=== PATIENT | female | born 1975 | race Two or more races ===

== ENCOUNTER 2025-09-30 15:24 | Inpatient (IN) | payer OTHER ==
[~2025-09-30] VITALS: Ht 160 cm; Wt 84.5 kg
[2025-09-30 16:28] LABS: Nucleated Red Blood Cells % 0.1 %
[2025-09-30 16:29] LABS: Hematocrit 42.0 % (36.0-46.0); Hemoglobin 14.5 g/dL (12.2-16.2); Mean Corpuscular Hemoglobin 26.8 pg (28.0-32.0); Mean Corpuscular Volume 77.6 fL (80.0-100.0)
--- NOTE | 2025-09-30 16:30 | ED.PDOC ---
History of Present Illness HPI Comments 50-year-old, Tajik-speaking female presents with friend for chief complaint of chest pain. Pressure endorses on sudden, unprovoked, atraumatic onset of pain, this morning. Pain originates in her substernal chest area that radiates directly to her back. She reports having associated nausea and vomiting. No reported recent per ailments, stressors, strenuous activities, travel, substance use, or any pertinent medical, surgical, social, or family history. Patient denies having any shortness of breath, arm pain, bloody or bilious vomitus, or further acute symptoms. 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 History Social History Smoker: Non-Smoker Alcohol: Denies ETOH Use Drugs: Denies Drug Use Lives In: Home All Other Systems: Reviewed and Negative (Comprehensive review of systems are negative unless otherwise stated in HPI) Physical Exam General Appearance: Moderate Distress HEENT: Normal ENT Inspection, Pharynx Normal, TMs Normal Neck: Full Range of Motion, Non-Tender, Normal, Normal Inspection Respiratory: Chest Non-Tender, Lungs Clear, No Accessory Muscle Use, No Respiratory Distress, Normal Breath Sounds Cardiovascular: No Edema, No JVD, No Murmur, No Gallop, Normal Peripheral Pulses, Regular Rate/Rhythm Breast Exam: Deferred Gastrointestinal: No Organomegaly, Non Tender, No Pulsatile Mass, Normal Bowel Sounds, Soft Genitalia: Deferred Pelvic: Deferred Rectal: Deferred Extremities: No calf tenderness, Normal capillary refill, Normal inspection, Normal range of motion, Non-tender, No pedal edema Musculoskeletal : Apperance: Normal Neurologic: Alert, 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 Was a procedure done?: No EKG EKG #1: Pulse Rate (adult): 56 [place]: Normal Cardiac Rhythm: NSR Block: None Hypertrophy: None ST: Normal EKG #2: Pulse Rate (adult): 54 [place]: Normal Cardiac Rhythm: NSR Block: None Hypertrophy: None ST: Normal Differential Dx Considerations may include: PR PE, ACS, CAD, URI, PNA, angina, anxiety, gastritis, gastroenteritis, among others X-Ray, Labs, Meds, VS Vital Signs Date Time Temp Pulse Resp B/P (MAP) Pulse Ox O2 Delivery O2 Flow Rate FiO2 09/30/25 16:43 09/30/25 16:30 56 09/30/25 15:37 56 09/30/25 15:26 97.0 62 18 179/116 100 97.0 Lab Test 09/30/25 16:17 Range/Units White Blood Count 5.1 4.4-10.8 10^3/uL Red Blood Count 5.42 H 4.0-5.20 10^6/uL Hemoglobin 14.5 12.2-16.2 g/dL Hematocrit 42.0 36.0-46.0 % Mean Corpuscular Volume 77.6 L 80.0-100.0 fL Mean Corpuscular Hemoglobin 26.8 L 28.0-32.0 pg Mean Corpuscular Hemoglobin Concent 34.6 32.0-36.0 g/dL Red Cell Distribution Width 14.9 H 11.8-14.3 % Platelet Count 127 L 140-450 10^3/uL Mean Platelet Volume 11.9 H 6.9-10.8 fL Neutrophils (%) (Auto) 71.3 37.0-80.0 % Lymphocytes (%) (Auto) 19.8 10.0-50.0 % Monocytes (%) (Auto) 6.6 0.0-12.0 % Eosinophils (%) (Auto) 1.2 0.0-7.0 % Basophils (%) (Auto) 1.1 0.0-2.0 % Neutrophils # (Auto) 3.6 1.6-8.6 10 ^3/uL Lymphocytes # (Auto) 1.0 0.4-5.4 10 ^3/uL Monocytes # (Auto) 0.3 0-1.3 10 ^3/uL Eosinophils # (Auto) 0.1 0-0.8 10 ^3/uL Basophils # (Auto) 0.1 0-0.2 10 ^3/uL Nucleated Red Blood Cells 0.1 % Platelet Estimate Pending Sodium Level 144 136-145 mmol/L Potassium Level 2.5 *L 3.5-5.1 mmol/L Chloride Level 103 98-107 mmol/L Carbon Dioxide Level 28 20-31 mmol/L Anion Gap 13 5-15 Blood Urea Nitrogen 7 L 9-23 mg/dL Creatinine 0.87 0.550-1.02 mg/dL Glomerular Filtration Rate Calc 81 >90 mL/min BUN/Creatinine Ratio 8.0 L 10.0-20.0 Serum Glucose 159 H 74-106 mg/dL Calcium Level 9.8 8.7-10.4 mg/dL Troponin I High Sensitivity Pending Patient alert. Complaining of chest pain. Vitals stable. Blood sugar elevated. Potassium is low. WBC within normal limits. Hemoglobin within normal limits. EKG reviewed does not show any acute changes. Explained to the patient. Continue monitoring. Time of 1ST Reevaluation: 16:20 Reevaluation 1ST: Unchanged Patient Education/Counseling: Diagnosis, Treatment Family Education/Counseling: No Family Present SEPSIS Sepsis Screen Date sepsis recognized/suspect: Sep 30, 2025 Time Sepsis recognized/suspect: 1526 Recent Procedure: No On Antibiotic Therapy: No Respiratory Rate >20: No Heart Rate >90: No Temp<36 C (96.8 F) or >38.3 C: No SBP <90 or MAP <65 mmHG: No New Acute Mental Status Change: No Is the patient on CPAP, BIPAP,: No Physician Orders Electrocardigram (09/30/25 15:51) Electrocardigram (09/30/25 16:51) Electrocardigram (09/30/25 18:51) Troponin-I Hs (09/30/25 16:08) Complete Blood Count (09/30/25 16:08) Urinalysis (09/30/25 16:08) Troponin-I Hs (09/30/25 17:08) Troponin-I Hs (09/30/25 19:08) Rbc Morphology (09/30/25 16:17) Vital Signs Date Time Temp Pulse Resp B/P (MAP) Pulse Ox O2 Delivery O2 Flow Rate FiO2 09/30/25 16:43 09/30/25 16:30 56 09/30/25 15:37 56 09/30/25 15:26 97.0 62 18 179/116 100 97.0 Laboratory Tests Test 09/30/25 16:17 White Blood Count 5.1 10^3/uL (4.4-10.8) Departure 1 Departure Time of Disposition: 16:51 Impression: Primary Impression: Chest pain of unknown etiology Additional Impressions: Hyperglycemia Hypokalemia Disposition: ADMITTED INPATIENT Admit to: Med Surg Condition: Guarded Critical Care Note Critical Care Time?: Yes (90 min-critical care time only) Stability Stability form required: No Heart Score Heart Score: Heart Score Response (Comments) Value History Moderate Suspicious 1 EKG Normal 0 Age 45-64 1 Risk Factors No known risk factors 0 Troponin Normal limit 0 Total 2 I personally scribed for BJ HER MD ([email or web address]) on 09/30/25 at 16:30. Electronically submitted by Zhen Adame ([email or web address]). I personally scribed for BJ HER MD ([email or web address]) on 09/30/25 at 16:43. Electronically submitted by Zhen Adame [email or web address]). BJ HER MD Sep 30, 2025 16:30
[2025-09-30 16:35] LABS: Chloride 103 mmol/L (98-107); Sodium 144 mmol/L (136-145)
[2025-09-30 16:36] LABS: Anion Gap 13 (5-15); Carbon Dioxide 28 mmol/L (20-31)
[2025-09-30 16:37] LABS: Calcium 9.8 mg/dL (8.7-10.4)
[2025-09-30 16:41] LABS: BUN/Creatinine Ratio 8.0 (10.0-20.0); Potassium 2.5 mmol/L (3.5-5.1)
[2025-09-30 16:42] LABS: Blood Urea Nitrogen 7 mg/dL (9-23); Glucose 159 mg/dL (74-106)
[2025-09-30 16:52] LABS: Giant Platelets Few
[2025-09-30] MEDS: POTASSIUM EFFERVESENT TAB 25 MEQ PO ONE (17:30)
[2025-09-30] MEDS: NITROGLYCERIN 0.4 MG SL TAB SL ONE (17:36)
[2025-09-30 19:17] LABS: Urine Protein, UAD Negative (Negative)
[2025-09-30 21:00] VITALS: BP 148/93; PULSE 67; RESP 18; TEMP 97.9; O2SAT 98
[2025-09-30] MEDS: ENOXAPARIN SOD 80 MG/0.8ML SYRINGE SC ONE (21:02)
[2025-09-30] MEDS ORDERED: ACETAMINOPHEN 325 MG TAB PO PRN (21:15)
[2025-09-30] MEDS ORDERED: MORPHINE SULFATE INJ 2 MG/ml SYRG IV PRN (21:15)
[2025-09-30] MEDS ORDERED: DOCUSATE SOD 100 MG CAP PO PRN (21:15)
[2025-09-30] MEDS ORDERED: ONDANSETRON HCL 4 MG/2 ML VIAL IV PRN (21:15)
[2025-09-30] MEDS ORDERED: NITROGLYCERIN 0.4 MG SL TAB SL PRN (21:15)
[2025-09-30] MEDS ORDERED: HYDROcodone-ACET 5/325MG TAB PO PRN (21:15)
--- NOTE | 2025-09-30 21:16 | DVHHP2 ---
History of Present Illness Reason for Visit: Chest pain of unknown etiology History of Present Illness The patient is a 50-year-old Swazi-speaking female who denies past medical history presented to [facility] ED with complaint of chest pain. Patient reports she has been experiencing substernal chest pain, getting, rating 8/10 numeric scale, associated nausea, vomiting, getting worse that prompted this visit. Patient was seen and evaluated in the ED, laboratory data shows WBC 5.1, platelets 127, sodium 144, potassium 2.5, BUN 7, creatinine 0.87, GFR 81, glucose 159, hemoglobin A1c 5.2, calcium 9.8, troponin 64, blood pressure 138/94, heart rate 66, temperature 98.4 F, O2 saturation 98% on room air. Please see medication orders section in the computer. On my assessment, patient denied chest pain at this moment, no headache, dizziness, diaphoresis, shortness a breath, no diarrhea, nausea, vomiting, fever, no chills. Patient was admitted for further evaluation and medical management. Past Medical History Denies past medical history Past Surgical History Denies all surgeries Family History Reviewed, noncontributory to the management of this case. Past Social History The patient lives at home, denies smoking, alcohol or illicit drugs abuse. Review of Systems Constitutional: No: Fever, Chills, Sweats, Weakness, Malaise, Other Eyes: No: Pain, Vision change, Conjunctivae inflammation, Eyelid inflammation, Other, Redness ENT: No: Ear pain, Ear discharge, Nose pain, Nose discharge, Nose congestion, Mouth pain, Mouth swelling, Throat pain, Throat swelling, Other Respiratory: No: Cough, Dry, Shortness of breath, SOB with excertion, Wheezing, Hemoptysis, Pleuritic Pain, Sputum, Wheezing, Other Cardiovascular: Chest Pain; No: Palpitations, Orthopnea, Paroxysmal Noc. Dyspnea, Edema, Lt Headedness, Other Gastrointestinal: No: Nausea, Vomiting, Abdominal Pain, Diarrhea, Constipation, Melena, Hematochezia, Other Genitourinary: No Dysuria, No Frequency, No Incontinence, No Hematuria, No Retention, No Other Musculoskeletal: No: other, neck pain, shoulder pain, arm pain, back pain, hand pain, leg pain, foot pain Skin: No: Rash, Lesions, Jaundice, Bruising, Other Neurological: No: Weakness, Numbness, Incoordination, Change in speech, Confusion, Seizures, Other Allergies: Coded Allergies: NO KNOWN ALLERGIES (Unverified , 09/30/25) Exam Vital Signs Vital Signs Date Time Temp Pulse Resp B/P (MAP) Pulse Ox O2 Delivery O2 Flow Rate FiO2 09/30/25 19:31 66 20 98 Room Air 09/30/25 19:31 98.4 138/94 (109) 98.4 General Appearance: Alert, Oriented X3, Cooperative, No acute distress HEENT: Atraumatic, PERRLA, EOMI, Mucous membr. moist/pink Respiratory: Normal air movement Cardiovascular: Regular rate, Normal S1, Normal S2, No murmurs Abdominal: Normal bowel sounds, Soft, No tenderness, No hepatospenomegaly, No masses Extremities: No clubbing, No cyanosis, No edema, Normal pulses, No tenderness/swelling Skin: No rashes, No significant lesion Neuro: Normal gait, Normal speech, Strength at 5/5 X4 ext, Normal tone, S ensation intact, Cranial nerves 3-12 NL, Reflexes 2+ Psych/Mental Status: Mental status NL, Mood NL Labs/Xrays Labs Test 09/30/25 19:17 09/30/25 17:20 09/30/25 16:17 Range/Units Troponin I High Sensitivity 63 *H </=34 ng/L Urine Color Colorless Yellow Urine Clarity Turbid H Clear Urine pH 7.0 5.0-9.0 Urine Specific [place] 1.006 1.001-1.035 Urine Protein Negative Negative Urine Ketones 2+ H Negative Urine Blood Negative Negative /uL Urine Nitrite Negative Negative Urine Bilirubin Negative Negative Urine Urobilinogen Normal Negative mg/dL Urine Leukocyte Esterase 1+ Negative /uL Urine RBC 4 0 - 4 /hpf Urine Microscopic WBC 9 H 0-5 /HPF Urine Squamous Epithelial Cells Mod <5 /hpf Urine Bacteria Few H None Seen /hpf Urine Mucus Few None Seen Urine Glucose Normal Normal mg/dL White Blood Count 5.1 4.4-10.8 10^3/uL Red Blood Count 5.42 H 4.0-5.20 10^6/uL Hemoglobin 14.5 12.2-16.2 g/dL Hematocrit 42.0 36.0-46.0 % Mean Corpuscular Volume 77.6 L 80.0-100.0 fL Mean Corpuscular Hemoglobin 26.8 L 28.0-32.0 pg Mean Corpuscular Hemoglobin Concent 34.6 32.0-36.0 g/dL Red Cell Distribution Width 14.9 H 11.8-14.3 % Platelet Count 127 L 140-450 10^3/uL Mean Platelet Volume 11.9 H 6.9-10.8 fL Neutrophils (%) (Auto) 71.3 37.0-80.0 % Lymphocytes (%) (Auto) 19.8 10.0-50.0 % Monocytes (%) (Auto) 6.6 0.0-12.0 % Eosinophils (%) (Auto) 1.2 0.0-7.0 % Basophils (%) (Auto) 1.1 0.0-2.0 % Neutrophils # (Auto) 3.6 1.6-8.6 10 ^3/uL Lymphocytes # (Auto) 1.0 0.4-5.4 10 ^3/uL Monocytes # (Auto) 0.3 0-1.3 10 ^3/uL Eosinophils # (Auto) 0.1 0-0.8 10 ^3/uL Basophils # (Auto) 0.1 0-0.2 10 ^3/uL Nucleated Red Blood Cells 0.1 % Platelet Estimate Decreased Giant Platelets Few Sodium Level 144 136-145 mmol/L Potassium Level 2.5 *L 3.5-5.1 mmol/L Chloride Level 103 98-107 mmol/L Carbon Dioxide Level 28 20-31 mmol/L Anion Gap 13 5-15 Blood Urea Nitrogen 7 L 9-23 mg/dL Creatinine 0.87 0.550-1.02 mg/dL Glomerular Filtration Rate Calc 81 >90 mL/min BUN/Creatinine Ratio 8.0 L 10.0-20.0 Serum Glucose 159 H 74-106 mg/dL Calcium Level 9.8 8.7-10.4 mg/dL SEPSIS Sepsis Screen Date sepsis recognized/suspect: Sep 30, 2025 Time Sepsis recognized/suspect: 1930 Recent Procedure: No On Antibiotic Therapy: No Respiratory Rate >20: No Heart Rate >90: No Temp<36 C (96.8 F) or >38.3 C: No SBP <90 or MAP <65 mmHG: No New Acute Mental Status Change: No Is the patient on CPAP, BIPAP,: No Physician Orders Electrocardigram (09/30/25 15:51) Electrocardigram (09/30/25 16:51) Electrocardigram (09/30/25 18:51) Urine Bacterial Culture (09/30/25 21:11) Hemoglobin A1c (09/30/25 21:11) Ceftriaxone Ivpb Rocephin (10/01/25 09:00) Vital Signs Date Time Temp Pulse Resp B/P (MAP) Pulse Ox O2 Delivery O2 Flow Rate FiO2 09/30/25 19:31 66 20 98 Room Air 09/30/25 19:31 98.4 66 20 138/94 (109) 98 98.4 09/30/25 17:36 161/87 09/30/25 16:43 09/30/25 16:37 54 09/30/25 16:30 56 09/30/25 15:37 56 09/30/25 15:26 97.0 62 18 179/116 100 97.0 Laboratory Tests Test 09/30/25 16:17 White Blood Count 5.1 10^3/uL (4.4-10.8) Medications Medications Dose Ordered Sig/Laurita Route Start Time Stop Time Status Last Admin Dose Admin Aspirin 325 mg ONCE ONCE PO 09/30/25 16:15 09/30/25 16:16 DC 09/30/25 17:31 325 MG Enoxaparin Sodium 80 mg ONCE ONCE SC 09/30/25 17:00 09/30/25 17:01 DC 09/30/25 21:02 80 MG Nitroglycerin 0.4 mg ONCE ONCE SL 09/30/25 17:00 09/30/25 17:01 DC 09/30/25 17:36 0.4 MG Potassium Bicarbonate 50 meq ONCE ONCE PO 09/30/25 17:00 09/30/25 17:01 DC 09/30/25 17:30 50 MEQ Assessment/Plan Assessment/Plan Chest pain of unknown etiology Hypokalemia Elevated troponin Hyperglycemia Urinary tract infection Generalized weakness Plan 1. Admit to telemetry unit 2. Breathing treatment 3. Pain control management 4. IV antibiotic management 5. Management of fluids and electrolytes 6. Consultation for Cardiology 7. Diagnostic test chest x-ray 8. DVT prophylaxis-on aspirin 9. Repeat labs CBC, CMP in a.m. 10. Home medication reviewed and reconciled 11. Continue with current medical management 12. Treatment plan discussed with patient and RN. Patient verbalized understanding. Plan discussed with: Patient, Other (RN) My Orders Orders - LIDIA CANSECO DNP Procedure Category Date Status Time Urine Bacterial KATHARINE 09/30/25 Verified Culture 21:11 Hemoglobin A1c LAB 09/30/25 Verified 21:11 Ceftriaxone Ivpb PHA 10/01/25 Verified Rocephin 09:00 Problem List: (1) Chest pain of unknown etiology (2) Hypokalemia (3) Elevated troponin (4) Hyperglycemia (5) Urinary tract infection (6) Generalized weakness Date of Service: Sep 30, 2025 Billing Provider: LIDIA CANSECO DNP Common Visit Codes: [id number] INP/OBS CARE (HIGH) LIDIA CANSECO DNP Sep 30, 2025 21:16
[2025-09-30] MEDS: SODIUM CHLOR 0.9% PF (SALINE LOCK) 10ML VIAL/SYR IV SCH (22:16)
[2025-09-30 22:20] VITALS: PULSE 60; RESP 17; O2SAT 98
[2025-10-01] VITALS (8 sets, daily range): BP systolic 127–153; BP diastolic 84–96; PULSE 56–71; RESP 15–18; TEMP 98.1–99.5; O2SAT 93–98
[2025-10-01 07:35] LABS: Nucleated Red Blood Cells % 0.1 %
[2025-10-01 07:39] LABS: Hematocrit 40.2 % (36.0-46.0); Hemoglobin 13.6 g/dL (12.2-16.2); Mean Corpuscular Hemoglobin 26.6 pg (28.0-32.0); Mean Corpuscular Volume 78.6 fL (80.0-100.0)
[2025-10-01 07:53] LABS: Alanine Aminotransferase 13 U/L (7-40); Albumin 3.9 g/dL (3.2-4.8); Alkaline Phosphatase 50 U/L (46-116); Anion Gap 11 (5-15); BUN/Creatinine Ratio 9.7 (10.0-20.0); Calcium 9.0 mg/dL (8.7-10.4); Chloride 103 mmol/L (98-107); Glucose 86 mg/dL (74-106); Total Protein 6.6 g/dL (5.7-8.2)
[2025-10-01 07:54] LABS: Bilirubin, Total 0.5 mg/dL (0.2-1.0)
[2025-10-01 08:00] LABS: Blood Urea Nitrogen 7 mg/dL (9-23); Carbon Dioxide 32 mmol/L (20-31); Potassium 2.9 mmol/L (3.5-5.1); Sodium 146 mmol/L (136-145)
[2025-10-01] MEDS: POTASSIUM CHL 20MEQ/100ML 100 ML IV SCH (10:58)
--- NOTE | 2025-10-01 12:25 | DVHINCON2 ---
Date Seen: Oct 01, 2025 Referring Physician REBEKAH Henry Reason for Consultation Elevated troponin History of Present Illness This is a pleasant 50-year-old Syriac-speaking mostly female who presented to the emergency room with a chief complaint of chest pain. Patient reports intermittent episodes of chest pain for the past year with the latest episode described as retrosternal, pressure-like, nonradiating, with onset when ambulating, and associated with some nausea and vomiting. Denies shortness of breath, palpitations, diaphoresis, or syncopal events. Denies any past medical history. Denies family history for cardiovascular disease. Denies the use of illicit drugs, smoking, or alcohol. Past Medical History Past medical history reviewed. No other significant than mentioned above. Past Surgical History Past surgical history reviewed. No other significant than mentioned above. Family History: Arthritis G8 MOTHER Diabetes during G8 FATHER, Family History Family history reviewed. Not significant for cardiovascular disease. Social History Denies the use of illicit drugs, alcohol, or tobacco use. Allergies: Coded Allergies: NO KNOWN ALLERGIES (Unverified , 09/30/25) Home Meds No Active Prescriptions or Reported Meds Home Meds Denies any active Rx medications. Current Medications Current Medications Medications (Trade) Dose Ordered Sig/Laurita Route PRN Reason Start Time Stop Time Status Last Admin Ceftriaxone Sodium 50 ml @ 100 mls/hr DAILY@2100 IV 10/01/25 21:00 Aspirin 81 mg DAILY PO 10/01/25 10:00 10/01/25 09:24 Sodium Chloride (Saline Lock Ns) 10 ml Q8HR IV 09/30/25 22:00 10/01/25 06:16 Acetaminophen/ Hydrocodone Bitart ([place] 5/325MG Tab) 1 tab Q4HP PRN PO MODERATE PAIN (4-6 PAIN SCALE) 09/30/25 21:15 Ondansetron HCl (Zofran) 4 mg Q4HP PRN IV NAUSEA / VOMITING 09/30/25 21:15 Docusate Sodium (Colace Capsule) 100 mg BIDPRN PRN PO FOR CONSTIPATION 09/30/25 21:15 Acetaminophen (Tylenol Tablet) 650 mg Q6HP PRN PO PAIN SCALE 1-3 OR TEMP>100.4 09/30/25 21:15 Nitroglycerin (Ntrostat Sublingual) 0.4 mg Q5MINP PRN SL FOR CHEST PAIN 09/30/25 21:15 Morphine Sulfate 2 mg Q30M PRN IV FOR CHEST PAIN 09/30/25 21:15 Potassium Chloride 100 ml @ 50 mls/hr Q2H IV 10/01/25 10:45 10/01/25 14:44 10/01/25 10:58 Review of Systems Constitutional: No symptom reported Ears, Nose, & Throat: No symptom reported Eyes: No symptom reported Neurological: No symptoms reported Pulmonary/Respiratory: No symptom reported Cardiovascular: Chest pain Gastrointestinal: No symptom reported Genitourinary: No symptom reported Musculoskeletal: No symptom reported Skin: No symptom reported Psychiatric: No symptom reported Endocrine: No symptom reported Hemotologic/Lymphatic: No symptom reported Vital Signs Vital Signs Date Time Temp Pulse Resp B/P (MAP) Pulse Ox O2 Delivery O2 Flow Rate FiO2 10/01/25 09:00 98.7 66 18 153/96 (115) 93 98.7 10/01/25 08:00 Room Air* 0 21 Physical Exam General Appearance: Cooperative. Well developed. Well nourished. In no acute distress Head Exam: Normal inspection Neck Exam: Normal inspection. Non-tender. Normal alignment Pulmonary/Respiratory: Chest non-tender. Clear bilateral breath sounds Cardiovascular/Chest: Regular rate and rhythm. S1, S2. NSR. No murmurs. No JVD. Peripheral Pulses: 2+ Radial (R). 2+ Radial (L). 2+ Pedal (R). 2+ Pedal (L) Abdominal Exam: Normal bowel sounds. Soft. Ankle Exam: Negative ankle edema Lower extremities: Negative lower extremity edema Neuro/Mental Status: A&O x4. Coherent Thoughts/Psych: Normal thought pattern. Appropriate mood and affect. Good ju dgement and insight Appearance: In no acute distress Skin Exam: Normal inspection. Normal color. Warm. Dry Labs/Diagnostic Data Labs Test 10/01/25 05:23 10/01/25 00:22 09/30/25 17:20 09/30/25 16:17 Range/Units White Blood Count 7.9 # 4.4-10.8 10^3/uL Red Blood Count 5.12 4.0-5.20 10^6/uL Hemoglobin 13.6 12.2-16.2 g/dL Hematocrit 40.2 36.0-46.0 % Mean Corpuscular Volume 78.6 L 80.0-100.0 fL Mean Corpuscular Hemoglobin 26.6 L 28.0-32.0 pg Mean Corpuscular Hemoglobin Concent 33.9 32.0-36.0 g/dL Red Cell Distribution Width 15.1 H 11.8-14.3 % Platelet Count 126 L 140-450 10^3/uL Mean Platelet Volume 13.0 H 6.9-10.8 fL Neutrophils (%) (Auto) 55.7 37.0-80.0 % Lymphocytes (%) (Auto) 34.5 10.0-50.0 % Monocytes (%) (Auto) 7.5 0.0-12.0 % Eosinophils (%) (Auto) 1.6 0.0-7.0 % Basophils (%) (Auto) 0.7 0.0-2.0 % Neutrophils # (Auto) 4.4 1.6-8.6 10 ^3/uL Lymphocytes # (Auto) 2.7 0.4-5.4 10 ^3/uL Monocytes # (Auto) 0.6 0-1.3 10 ^3/uL Eosinophils # (Auto) 0.1 0-0.8 10 ^3/uL Basophils # (Auto) 0.1 0-0.2 10 ^3/uL Nucleated Red Blood Cells 0.1 % Sodium Level 146 H 136-145 mmol/L Potassium Level 2.9 L 3.5-5.1 mmol/L Chloride Level 103 98-107 mmol/L Carbon Dioxide Level 32 H 20-31 mmol/L Anion Gap 11 5-15 Blood Urea Nitrogen 7 L 9-23 mg/dL Creatinine 0.72 0.550-1.02 mg/dL Glomerular Filtration Rate Calc 102 >90 mL/min BUN/Creatinine Ratio 9.7 L 10.0-20.0 Serum Glucose 86 74-106 mg/dL Calcium Level 9.0 8.7-10.4 mg/dL Total Bilirubin 0.5 0.2-1.0 mg/dL Aspartate Amino Transferase (AST) 22 13-40 U/L Alanine Aminotransferase (ALT) 13 7-40 U/L Alkaline Phosphatase 50 46-116 U/L Total Protein 6.6 5.7-8.2 g/dL Albumin 3.9 3.2-4.8 g/dL Troponin I High Sensitivity 58 *H </=34 ng/L Urine Color Colorless Yellow Urine Clarity Turbid H Clear Urine pH 7.0 5.0-9.0 Urine Specific [place] 1.006 1.001-1.035 Urine Protein Negative Negative Urine Ketones 2+ H Negative Urine Blood Negative Negative /uL Urine Nitrite Negative Negative Urine Bilirubin Negative Negative Urine Urobilinogen Normal Negative mg/dL Urine Leukocyte Esterase 1+ Negative /uL Urine RBC 4 0 - 4 /hpf Urine Microscopic WBC 9 H 0-5 /HPF Urine Squamous Epithelial Cells Mod <5 /hpf Urine Bacteria Few H None Seen /hpf Urine Mucus Few None Seen Urine Glucose Normal Normal mg/dL Platelet Estimate Decreased Giant Platelets Few Hemoglobin A1c 5.2 <5.7 % A1C Microbiology Date/Time Source Procedure Growth Status 09/30/25 17:20 Voided Urine Urine Culture - Preliminary Resulted Assessment Chest pain rule out coronary artery disease Rule out structural heart disease Severe hypokalemia Hypertensive urgency, newly diagnosed NSTEMI, likely type 2 secondary to above Plan/Recommendation (Dr. Zaidi) * Twelve lead electrocardiogram x2 revealed a normal sinus rhythm with borderline T-wave abnormalities to anterior leads. * Heart Score: 4 points. Moderate Score for major cardiac events. * Serial troponin levels peaked at 65 ng/L. Plan: We will continue further cardiac evaluation with a transthoracic echocardiogram to rule out structural heart disease. The patient has been scheduled for a treadmill stress test with Cardiolite to rule out coronary ischemia. Initiate ACEI and chlorthalidone for blood pressure control for a target SBP <140 mmHg. In the meantime, continue electrolyte replenishment as necessary. TSH, lipid panel, and magnesium levels pending at this time. Continue single antiplatelet therapy. Monitor ECG changes closely and notify accordingly. Continue chest pain protocol. Further orders per clinical course. Thank you for allowing us to participate in this patient's care. Please call if you have any questions or concerns. This medical document was created using an electronic medical record system with voice recognition software and computerized dictation system. Although this document has been carefully reviewed, there might still be some phonetic and typographical errors. Occasional wrong-word or ``sound-alike substitutions may have occurred due to the inherent limitations of voice recognition software. These areas are purely typographical due to imperfections of the software programs and do not reflect any compromise in the patient's medical care. Please read the chart carefully and recognize, using context, where these subst itutions have occurred. Plan discussed with: Patient, Other NYHA Physical activity limitations: NA Date of Service: Oct 01, 2025 Billing Provider: ANGELA FELIZ Cardiology Common Codes: [id number] INP/OBS CARE (High) ANGELA FELIZ Oct 01, 2025 12:25
--- NOTE | 2025-10-01 12:54 | DVH ---
CHEST RADIOGRAPH Indication: Chest pain Technique: Single frontal view of the chest was obtained Comparison: None FINDINGS: Lines and Tubes: None Lungs: No focal consolidation. Pleura: No effusion. No pneumothorax. Cardiomediastinal contours: Unremarkable Bones: No acute osseous abnormality. IMPRESSION: 1. No acute cardiopulmonary disease.
[2025-10-01] MEDS: LISINOPRIL 20 MG TAB PO ONE (13:10)
[2025-10-01] MEDS: CHLORTHALIDONE 25 MG TAB PO ONE (13:10)
[2025-10-01 13:34] LABS: Magnesium 1.9 mg/dL (1.6-2.6); Triglycerides 105.0 mg/dL (< 150)
[2025-10-01 13:36] LABS: Cholesterol 165.0 mg/dL (< 200); HDL Cholesterol 42.0 mg/dL (40-59)
--- NOTE | 2025-10-01 15:30 | DVHSR ---
APPROVED REPORT EXAM: Two-dimensional and M-mode echocardiogram with Doppler and color Doppler. Blood Pressure: 153/96 mmHg INDICATION Chest Pain RISK FACTORS Height: 5'3", Weight: 165 DIMENSIONS LVDd5.0 (3.8-5.7cm)LA (2D)3.6 (1.9-4.0cm)Aortic Root3.5 (2.0-3.7cm) LVDs3.7 (2.5-4.0cm)LA (MM) (1.9-4.0cm)Aortic Cusp Exc1.8 (1.5-2.0cm) EF (%) 53.0 (55-70%)Rt. Atrium3.5 (1.9-4.0cm)Asc. Aorta cm IVSd1.2 (0.7-1.1cm)RV (D)3.7 (1.8-2.4cm) PWd1.1 (0.7-1.1cm) Mitral Valve MitralMitral Stenosis E wave0.64m/sMV Mean GR.mmHg A wave0.83m/sMV Peak GR.mmHg E/A ratio0.82D MVAcm2 DECEL [id number] 1/2 Timems Aortic Valve Aortic ValveAortic Stenosis V10.96m/Nani Mean GR.3mmHg V21.25m/Nani Peak GR.6mmHg LVOT Diameter1.9 (1.8-2.4cm)Doppler AVA2.18cm2 Pulmonic Valve V20.99m/s Other Information Technically limited study due to body habitus. Conclusion LV EF IS 65% NORMAL VALVES NORMAL RV FUNCTION NO EFFUSION
[2025-10-01] MEDS: POTASSIUM CHL 20 Meq TABLET PO ONE (16:20)
--- NOTE | 2025-10-01 18:18 | DVHPN2 ---
Subjective In bed with no chest pain Reviewed: H&P Changes from previous H/P or p: No Changes Eyes: No Pain, No Vision change, No Conjunctivae inflammation, No Eyelid inflammation, No Other, No Redness ENT: No Ear pain, No Ear discharge, No Nose pain, No Nose discharge, No Nose congestion, No Mouth pain, No Mouth swelling, No Throat pain, No Throat swelling, No Other Cardiovascular: Chest Pain; No Palpitations, No Orthopnea, No Paroxysmal Noc. Dyspnea, No Edema, No Lt Headedness, No Other Respiratory: No Cough, No Dry, No Shortness of breath, No SOB with excertion, No Wheezing, No Hemoptysis, No Pleuritic Pain, No Sputum, No Other Gastrointestinal: No Nausea, No Vomiting, No Abdominal Pain, No Diarrhea, No Constipation, No Melena, No Hematochezia, No Other Genitourinary: No Dysuria, No Frequency, No Incontinence, No Hematuria, No Retention, No Other Musculoskeletal: No other, No neck pain, No shoulder pain, No arm pain, No back pain, No hand pain, No leg pain, No foot pain Skin: No Rash, No Lesions, No Jaundice, No Bruising, No Other Objective Vitals Vital Signs Date Time Temp Pulse Resp B/P (MAP) Pulse Ox O2 Delivery O2 Flow Rate FiO2 10/01/25 17:00 98.4 65 17 143/94 (110) 98 98.4 10/01/25 08:00 Room Air* 0 21 Intake/Output Intake and Output 10/01/25 05:00 Intake Total 340 ml Balance 340 ml Intake Oral 340 ml # Voids 3 General Appearance: Alert, Oriented X3 HEENT: Atraumatic Lungs: Clear to auscultation Cardiovascular: Regular rate, Normal S1, Normal S2 Abdomen: Normal bowel sounds Medications Current Medications Medications Dose Ordered Sig/Laurita Route Start Time Stop Time Status Last Admin Dose Admin Ceftriaxone Sodium 50 ml @ 100 mls/hr DAILY@2100 IV 10/01/25 21:00 Aspirin 81 mg DAILY PO 10/01/25 10:00 10/01/25 09:24 81 MG Sodium Chloride 10 ml Q8HR IV 09/30/25 22:00 10/01/25 13:27 10 ML Acetaminophen/ Hydrocodone Bitart 1 tab Q4HP PRN PO 09/30/25 21:15 Ondansetron HCl 4 mg Q4HP PRN IV 09/30/25 21:15 Docusate Sodium 100 mg BIDPRN PRN PO 09/30/25 21:15 Acetaminophen 650 mg Q6HP PRN PO 09/30/25 21:15 Nitroglycerin 0.4 mg Q5MINP PRN SL 09/30/25 21:15 Morphine Sulfate 2 mg Q30M PRN IV 09/30/25 21:15 Lisinopril 20 mg DAILY PO 10/02/25 10:00 Chlorthalidone 12.5 mg DAILY@BREAKFAST PO 10/02/25 08:00 Laboratory Results Laboratory Tests 10/01/25 05:23 Chemistry Test 10/01/25 05:23 10/01/25 05:32 Albumin 3.9 g/dL (3.2-4.8) Calcium Level 9.0 mg/dL (8.7-10.4) Total Protein 6.6 g/dL (5.7-8.2) Magnesium Level 1.9 mg/dL (1.6-2.6) Lipid panel Test 10/01/25 05:32 Cholesterol Level 165 mg/dL (< 200) HDL Cholesterol 42 mg/dL (40-59) Triglycerides Level 105 mg/dL (< 150) LFT Test 10/01/25 05:23 Alanine Aminotransferase (ALT) 13 U/L (7-40) Alkaline Phosphatase 50 U/L (46-116) Aspartate Amino Transferase (AST) 22 U/L (13-40) Total Bilirubin 0.5 mg/dL (0.2-1.0) HgA1c, TSH Test 10/01/25 05:23 Thyroid Stimulating Hormone (TSH) 0.96 uIU/mL (0.55-4.78) Urinalysis Test 09/30/25 17:20 Urine Color Colorless (Yellow) Urine Clarity Turbid (Clear) H Urine pH 7.0 (5.0-9.0) Urine Specific [place] 1.006 (1.001-1.035) Urine Protein Negative (Negative) Urine Ketones 2+ (Negative) H Urine Blood Negative /uL (Negative) Urine Nitrite Negative (Negative) Urine Bilirubin Negative (Negative) Urine Urobilinogen Normal mg/dL (Negative) Urine Leukocyte Esterase 1+ /uL (Negative) Urine RBC 4 /hpf (0 - 4) Urine Microscopic WBC 9 /HPF (0-5) H Urine Squamous Epithelial Cells Mod /hpf (<5) Urine Bacteria Few /hpf (None Seen) H Urine Mucus Few (None Seen) Urine Glucose Normal mg/dL (Normal) Microbiology Microbiology Date/Time Source Procedure Growth Status 09/30/25 17:20 Voided Urine Urine Culture - Preliminary Resulted Assessment/Plan Assessment/Plan Chest pain of unknown etiology Hypokalemia Elevated troponin Hyperglycemia Urinary tract infection Generalized weakness Pending cardiology consult Aspirin Echocardiogram IV abx Plan discussed with: Patient Date of Service: Oct 01, 2025 Billing Provider: JUDAH PEREA MD Common Visit Codes: [id number] INP/OBS CARE(HIGH) JUDAH PEREA MD Oct 01, 2025 18:18
--- NOTE | 2025-10-01 22:14 | DVHINCON2 ---
Date Seen: Oct 01, 2025 Referring Physician REBEKAH Henry Reason for Consultation Elevated troponin History of Present Illness This is a pleasant 50-year-old Indonesian-speaking mostly female without any significant medical history who presented to the emergency room with a chief complaint of chest pain. Patient reports intermittent episodes of chest pain for the past year with the latest episode described as retrosternal, pressure-like, nonradiating, with onset when ambulating, and associated with some nausea and vomiting. Denies shortness of breath, palpitations, diaphoresis, or syncopal events. Denies family history for cardiovascular disease. Denies the use of illicit drugs, smoking, or alcohol. NA 146, K 2.9, CO2 32. Chest x-ray shows NAD. Patient was admitted to the hospital. I am asked to consult on this patient. Past Medical History Past medical history reviewed. No other significant than mentioned above. Past Surgical History Past surgical history reviewed. No other significant than mentioned above. Family History: Arthritis G8 MOTHER Diabetes during G8 FATHER, Allergies: Coded Allergies: NO KNOWN ALLERGIES (Unverified , 09/30/25) Home Meds No Active Prescriptions or Reported Meds Current Medications Current Medications Medications (Trade) Dose Ordered Sig/Laurita Route PRN Reason Start Time Stop Time Status Last Admin Ceftriaxone Sodium 50 ml @ 100 mls/hr DAILY@2100 IV 10/01/25 21:00 Aspirin 81 mg DAILY PO 10/01/25 10:00 10/01/25 09:24 Sodium Chloride (Saline Lock Ns) 10 ml Q8HR IV 09/30/25 22:00 10/01/25 13:27 Acetaminophen/ Hydrocodone Bitart ([place] 5/325MG Tab) 1 tab Q4HP PRN PO MODERATE PAIN (4-6 PAIN SCALE) 09/30/25 21:15 Ondansetron HCl (Zofran) 4 mg Q4HP PRN IV NAUSEA / VOMITING 09/30/25 21:15 Docusate Sodium (Colace Capsule) 100 mg BIDPRN PRN PO FOR CONSTIPATION 09/30/25 21:15 Acetaminophen (Tylenol Tablet) 650 mg Q6HP PRN PO PAIN SCALE 1-3 OR TEMP>100.4 09/30/25 21:15 Nitroglycerin (Ntrostat Sublingual) 0.4 mg Q5MINP PRN SL FOR CHEST PAIN 09/30/25 21:15 Morphine Sulfate 2 mg Q30M PRN IV FOR CHEST PAIN 09/30/25 21:15 Potassium Chloride 100 ml @ 50 mls/hr Q2H IV 10/01/25 10:45 10/01/25 14:44 DC 10/01/25 14:10 Lisinopril (Zestril Tablet) 20 mg DAILY PO 10/02/25 10:00 Chlorthalidone (Chlorthalidone) 12.5 mg DAILY@BREAKFAST PO 10/02/25 08:00 Review of Systems Constitutional: No symptom reported Ears, Nose, & Throat: No symptom reported Eyes: No symptom reported Neurological: No symptoms reported Pulmonary/Respiratory: No symptom reported Cardiovascular: Chest pain Gastrointestinal: No symptom reported Genitourinary: No symptom reported Musculoskeletal: No symptom reported Skin: No symptom reported Psychiatric: No symptom reported Endocrine: No symptom reported Hemotologic/Lymphatic: No symptom reported Vital Signs Vital Signs Date Time Temp Pulse Resp B/P (MAP) Pulse Ox O2 Delivery O2 Flow Rate FiO2 10/01/25 13:10 132/87 10/01/25 13:00 99.5 66 16 96 99.5 10/01/25 08:00 Room Air* 0 21 Physical Exam GENERAL: Alert and oriented x 3. No acute distress. EYES: PERRL, EOMI. Anicteric. HENT: Moist mucous membranes. LUNGS: Clear to auscultation bilaterally. CARDIOVASCULAR: Regular rate and rhythm. ABDOMEN: Soft, nontender and nondistended. EXTREMITIES: No edema. NEUROLOGIC: No focal neurological deficits. SKIN: Warm, dry. Labs/Diagnostic Data Labs Test 10/01/25 05:32 10/01/25 05:23 10/01/25 00:22 09/30/25 17:20 Range/Units Magnesium Level 1.9 1.6-2.6 mg/dL Triglycerides Level 105 < 150 mg/dL Cholesterol Level 165 < 200 mg/dL LDL Cholesterol 101 H < 100 mg/dL HDL Cholesterol 42 40-59 mg/dL White Blood Count 7.9 # 4.4-10.8 10^3/uL Red Blood Count 5.12 4.0-5.20 10^6/uL Hemoglobin 13.6 12.2-16.2 g/dL Hematocrit 40.2 36.0-46.0 % Mean Corpuscular Volume 78.6 L 80.0-100.0 fL Mean Corpuscular Hemoglobin 26.6 L 28.0-32.0 pg Mean Corpuscular Hemoglobin Concent 33.9 32.0-36.0 g/dL Red Cell Distribution Width 15.1 H 11.8-14.3 % Platelet Count 126 L 140-450 10^3/uL Mean Platelet Volume 13.0 H 6.9-10.8 fL Neutrophils (%) (Auto) 55.7 37.0-80.0 % Lymphocytes (%) (Auto) 34.5 10.0-50.0 % Monocytes (%) (Auto) 7.5 0.0-12.0 % Eosinophils (%) (Auto) 1.6 0.0-7.0 % Basophils (%) (Auto) 0.7 0.0-2.0 % Neutrophils # (Auto) 4.4 1.6-8.6 10 ^3/uL Lymphocytes # (Auto) 2.7 0.4-5.4 10 ^3/uL Monocytes # (Auto) 0.6 0-1.3 10 ^3/uL Eosinophils # (Auto) 0.1 0-0.8 10 ^3/uL Basophils # (Auto) 0.1 0-0.2 10 ^3/uL Nucleated Red Blood Cells 0.1 % Sodium Level 146 H 136-145 mmol/L Potassium Level 2.9 L 3.5-5.1 mmol/L Chloride Level 103 98-107 mmol/L Carbon Dioxide Level 32 H 20-31 mmol/L Anion Gap 11 5-15 Blood Urea Nitrogen 7 L 9-23 mg/dL Creatinine 0.72 0.550-1.02 mg/dL Glomerular Filtration Rate Calc 102 >90 mL/min BUN/Creatinine Ratio 9.7 L 10.0-20.0 Serum Glucose 86 74-106 mg/dL Calcium Level 9.0 8.7-10.4 mg/dL Total Bilirubin 0.5 0.2-1.0 mg/dL Aspartate Amino Transferase (AST) 22 13-40 U/L Alanine Aminotransferase (ALT) 13 7-40 U/L Alkaline Phosphatase 50 46-116 U/L Total Protein 6.6 5.7-8.2 g/dL Albumin 3.9 3.2-4.8 g/dL Thyroid Stimulating Hormone (TSH) 0.96 0.55-4.78 uIU/mL Troponin I High Sensitivity 58 *H </=34 ng/L Urine Color Colorless Yellow Urine Clarity Turbid H Clear Urine pH 7.0 5.0-9.0 Urine Specific [place] 1.006 1.001-1.035 Urine Protein Negative Negative Urine Ketones 2+ H Negative Urine Blood Negative Negative /uL Urine Nitrite Negative Negative Urine Bilirubin Negative Negative Urine Urobilinogen Normal Negative mg/dL Urine Leukocyte Esterase 1+ Negative /uL Urine RBC 4 0 - 4 /hpf Urine Microscopic WBC 9 H 0-5 /HPF Urine Squamous Epithelial Cells Mod <5 /hpf Urine Bacteria Few H None Seen /hpf Urine Mucus Few None Seen Urine Glucose Normal Normal mg/dL Test 09/30/25 16:17 Range/Units Platelet Estimate Decreased Giant Platelets Few Hemoglobin A1c 5.2 <5.7 % A1C Microbiology Date/Time Source Procedure Growth Status 09/30/25 17:20 Voided Urine Urine Culture - Preliminary Resulted Assessment Chest pain rule out coronary artery disease. Rule out structural heart disease. Severe hypokalemia. Hypertensive urgency, newly diagnosed. NSTEMI, likely type 2 secondary to above. Plan/Recommendation I agree with your ongoing assessment and care of plan. Patient has been seen by Kristi Sands NP on my behalf, her and I discussed the plan with the patient. We will continue further cardiac evaluation with a transthoracic echocardiogram to rule out structural heart disease. The patient has been scheduled for a treadmill stress test with Cardiolite to rule out coronary ischemia. Initiate ACEI and chlorthalidone for blood pressure control for a target SBP <140 mmHg. In the meantime, continue electrolyte replenishment as necessary. TSH, lipid panel, and magnesium levels pending at this time. Continue single antiplatelet therapy. Monitor ECG changes closely and notify accordingly. Continue chest pain protocol. Further orders per clinical course. Twelve lead electrocardiogram x2 revealed a normal sinus rhythm with borderline T-wave abnormalities to anterior leads. Heart Score: 4 points. Moderate Score for major cardiac events. Serial troponin levels peaked at 65 ng/L. Additional plan as per the hospital course. Plan discussed with: Patient NYHA Physical activity limitations: NA Date of Service: Oct 01, 2025 Billing Provider: AMANDA PERES MD Cardiology Common Codes: [id number] INP/OBS CARE (High) Cardiology Consultation Codes: [id number] CONSULT <45MIN AMANDA PERES MD Oct 01, 2025 14:58
[2025-10-02 00:56] VITALS: BP 129/81; PULSE 66; RESP 15; TEMP 98.3; O2SAT 97
[2025-10-02 05:00] VITALS: BP 125/77; PULSE 57; RESP 15; TEMP 98.6; O2SAT 98
[2025-10-02 08:00] VITALS: PULSE 63
[2025-10-02 09:07] VITALS: BP 138/93; PULSE 60; RESP 16; TEMP 97.6; O2SAT 100
--- NOTE | 2025-10-02 10:18 | DVHCARD ---
Cardiology Stress Test [place] Treadmill Stress Test [place] Referring MD: REBEKAH Feliz Protocol: Marlon (with cardiolite) Reason for referral: Chest Pain Target heart Rate:@85%: 144 Percent MPHR: 170 METS: 10.10 Resting Heart rate: 64 Resting Blood Pressure: 140/91 Exercise Heart Rate: 166 Exercise Blood Pressure: 172/92 Reason for Termination of Test: Completion of Protocol Baseline EKG: NSR Stress EKG: Sinus tachycardia without ST-T wave segment changes Functional Capacity: Good Normal Heart Rate Response: Adequate Blood Pressure Response: Hypertensive Clinical response: Non-ischemic Arrhythmia?: No Cardiolite Injected?: Yes ST-T Changes: Non/Minimal Probability of Inducible Ische: Perfusion result pending Comments: Uneventful Marlon protocol. Date of Service: Oct 02, 2025 Billing Provider: ANGELA FELIZ Cardiology Common Codes: PROCEDURE ONLY Treadmill W/Cardiolite Nuclear: [id number], INTERP, RPT ANGELA FELIZ Oct 02, 2025 10:18
[2025-10-02] MEDS: CHLORTHALIDONE 25 MG TAB PO SCH (11:00)
[2025-10-02] MEDS: LISINOPRIL 20 MG TAB PO SCH (11:01)
--- NOTE | 2025-10-02 11:55 | ECG ---
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
[2025-10-02 13:00] VITALS: BP 135/89; PULSE 91; RESP 16; TEMP 96.9; O2SAT 97
[2025-10-02] MEDS ORDERED: LISI20TA56 PO (13:10)
[2025-10-02] MEDS ORDERED: CHLO25TA2 PO (13:10)
--- NOTE | 2025-10-02 13:13 | DVHDS2 ---
Discharge Summary Date of Admission Sep 30, 2025 at 21:11 Date of Discharge: Oct 02, 2025 Labs/Diagnostic Data: Laboratory Results Test 10/01/25 05:32 10/01/25 05:23 10/01/25 00:22 09/30/25 17:20 Magnesium Level 1.9 mg/dL (1.6-2.6) Triglycerides Level 105 mg/dL (< 150) Cholesterol Level 165 mg/dL (< 200) LDL Cholesterol 101 mg/dL (< 100) HDL Cholesterol 42 mg/dL (40-59) White Blood Count 7.9 10^3/uL (4.4-10.8) Red Blood Count 5.12 10^6/uL (4.0-5.20) Hemoglobin 13.6 g/dL (12.2-16.2) Hematocrit 40.2 % (36.0-46.0) Mean Corpuscular Volume 78.6 fL (80.0-100.0) Mean Corpuscular Hemoglobin 26.6 pg (28.0-32.0) Mean Corpuscular Hemoglobin Concent 33.9 g/dL (32.0-36.0) Red Cell Distribution Width 15.1 % (11.8-14.3) Platelet Count 126 10^3/uL (140-450) Mean Platelet Volume 13.0 fL (6.9-10.8) Neutrophils (%) (Auto) 55.7 % (37.0-80.0) Lymphocytes (%) (Auto) 34.5 % (10.0-50.0) Monocytes (%) (Auto) 7.5 % (0.0-12.0) Eosinophils (%) (Auto) 1.6 % (0.0-7.0) Basophils (%) (Auto) 0.7 % (0.0-2.0) Neutrophils # (Auto) 4.4 10 ^3/uL (1.6-8.6) Lymphocytes # (Auto) 2.7 10 ^3/uL (0.4-5.4) Monocytes # (Auto) 0.6 10 ^3/uL (0-1.3) Eosinophils # (Auto) 0.1 10 ^3/uL (0-0.8) Basophils # (Auto) 0.1 10 ^3/uL (0-0.2) Nucleated Red Blood Cells 0.1 % Sodium Level 146 mmol/L (136-145) Potassium Level 2.9 mmol/L (3.5-5.1) Chloride Level 103 mmol/L (98-107) Carbon Dioxide Level 32 mmol/L (20-31) Anion Gap 11 (5-15) Blood Urea Nitrogen 7 mg/dL (9-23) Creatinine 0.72 mg/dL (0.550-1.02) Glomerular Filtration Rate Calc 102 mL/min (>90) BUN/Creatinine Ratio 9.7 (10.0-20.0) Serum Glucose 86 mg/dL (74-106) Calcium Level 9.0 mg/dL (8.7-10.4) Total Bilirubin 0.5 mg/dL (0.2-1.0) Aspartate Amino Transferase (AST) 22 U/L (13-40) Alanine Aminotransferase (ALT) 13 U/L (7-40) Alkaline Phosphatase 50 U/L (46-116) Total Protein 6.6 g/dL (5.7-8.2) Albumin 3.9 g/dL (3.2-4.8) Thyroid Stimulating Hormone (TSH) 0.96 uIU/mL (0.55-4.78) Troponin I High Sensitivity 58 ng/L (</=34) Urine Color Colorless (Yellow) Urine Clarity Turbid (Clear) Urine pH 7.0 (5.0-9.0) Urine Specific [place] 1.006 (1.001-1.035) Urine Protein Negative (Negative) Urine Ketones 2+ (Negative) Urine Blood Negative /uL (Negative) Urine Nitrite Negative (Negative) Urine Bilirubin Negative (Negative) Urine Urobilinogen Normal mg/dL (Negative) Urine Leukocyte Esterase 1+ /uL (Negative) Urine RBC 4 /hpf (0 - 4) Urine Microscopic WBC 9 /HPF (0-5) Urine Squamous Epithelial Cells Mod /hpf (<5) Urine Bacteria Few /hpf (None Seen) Urine Mucus Few (None Seen) Urine Glucose Normal mg/dL (Normal) Test 09/30/25 16:17 Platelet Estimate Decreased Giant Platelets Few Hemoglobin A1c 5.2 % A1C (<5.7) Other Laboratory Tests 10/01/25 05:23 Brief Hx & Hospital Course: 50-year-old [place]-speaking female who denies past medical history presented to [facility] ED with complaint of chest pain. Patient reports she has been experiencing substernal chest pain, getting, rating 8/10 numeric scale, associated nausea, vomiting, getting worse that prompted this visit. Patient was seen and evaluated in the ED, laboratory data shows WBC 5.1, platelets 127, sodium 144, potassium 2.5, BUN 7, creatinine 0.87, GFR 81, glucose 159, hemoglobin A1c 5.2, calcium 9.8, troponin 64, blood pressure 138/94, heart rate 66, temperature 98.4 F, O2 saturation 98% on room air. Please see medication orders section in the computer. On my assessment, patient denied chest pain at this moment, no headache, dizziness, diaphoresis, shortness a breath, no diarrhea, nausea, vomiting, fever, no chills. Patient was admitted for further evaluation and medical management. During hospital stay HTN got better, troponins high not trending up, seen by cardiology and had stress test, negative Condition at Discharge: Good Final Diagnosis/Problems List Elevated troponins Chest pain ACS ruled out Hypertension emergency with elevated troponins Discharge Disposition: Home Discharge Instruct/Medications Diet: Regular Activity: No Restrictions, As Tolerated Follow Up/Referral: PCP in 7 days Medications: lisinopril, chlortalidone Scheduled Chlorthalidone (Chlorthalidone), 12.5 MG PO DAILY@BREAKFAST Lisinopril (Lisinopril), 20 MG PO DAILY Discharge Statement: "Patient was advised to return to the ER or call 911 if any headaches, dizziness, shortness of breath, chest pain, abdominal pain, bleeding, fevers, or worsening of medical condition. Patient was counseled about treatment plan, medications, possible side effects, patientverbalized understanding. All questions were answered to the best of my ability. This discharge took greater then 30 minutes in planning, reviewing documentation, counseling the patient, and discussing with other team members." ASSESSMENT ASSESSMENT Assessment Elevated troponins Chest pain ACS ruled out Date of Service: Oct 02, 2025 Billing Provider: JUDAH PEREA MD Common Visit Codes: [id number] DISCH DAY >30min JUDAH PEREA MD Oct 02, 2025 13:12
[2025-10-02 13:43] LABS: Chloride 101 mmol/L (98-107); Sodium 143 mmol/L (136-145)
[2025-10-02 13:45] LABS: Anion Gap 10 (5-15); Calcium 9.0 mg/dL (8.7-10.4)
[2025-10-02 13:47] LABS: Carbon Dioxide 32 mmol/L (20-31); Potassium 2.6 mmol/L (3.5-5.1)
[2025-10-02 13:50] LABS: BUN/Creatinine Ratio 6.8 (10.0-20.0); Blood Urea Nitrogen < 5 mg/dL (9-23); Glucose 139 mg/dL (74-106)
[2025-10-02] MEDS ORDERED: POTASSIUM CHL 20 Meq TABLET PO ONE (14:15)
--- NOTE | 2025-10-02 14:23 | DVHPN2 ---
Consult Progress Note Date Seen: Oct 02, 2025 Subjective Review of Systems: CVS:Normal, RESPIRATORY:Normal, NEURO:Normal Objective vital signs Vital Sign Date Time Temp Pulse Resp B/P (MAP) Pulse Ox O2 Delivery O2 Flow Rate FiO2 10/02/25 13:00 96.9 91 16 135/89 (104) 97 96.9 10/02/25 08:00 Room Air* 0 21 Total Intake and Output 10/01/25 10/01/25 10/02/25 15:00 23:00 07:00 Intake Total 340 ml 1410 ml 240 ml Balance 340 ml 1410 ml 240 ml medications Current Medications Medications Dose Ordered Sig/Laurita Route Start Time Stop Time Status Last Admin Dose Admin Ceftriaxone Sodium 50 ml @ 100 mls/hr DAILY@2100 IV 10/01/25 21:00 10/01/25 20:25 100 MLS/HR Aspirin 81 mg DAILY PO 10/01/25 10:00 10/02/25 11:01 81 MG Sodium Chloride 10 ml Q8HR IV 09/30/25 22:00 10/02/25 05:55 10 ML Acetaminophen/ Hydrocodone Bitart 1 tab Q4HP PRN PO 09/30/25 21:15 Ondansetron HCl 4 mg Q4HP PRN IV 09/30/25 21:15 Docusate Sodium 100 mg BIDPRN PRN PO 09/30/25 21:15 Acetaminophen 650 mg Q6HP PRN PO 09/30/25 21:15 Nitroglycerin 0.4 mg Q5MINP PRN SL 09/30/25 21:15 Morphine Sulfate 2 mg Q30M PRN IV 09/30/25 21:15 Lisinopril 20 mg DAILY PO 10/02/25 10:00 10/02/25 11:01 20 MG Chlorthalidone 12.5 mg DAILY@BREAKFAST PO 10/02/25 08:00 10/02/25 11:00 12.5 MG Examination: LUNGS:Normal, CVS:Normal, NEURO:Normal laboratory and microbiology Laboratory Tests 10/02/25 11:50 10/01/25 05:23 Test 10/02/25 11:50 Range/Units Serum Glucose 139 H 74-106 mg/dL Problem List/Assessment/Plan Problem List/Assessment/Plan Chest pain rule out coronary artery disease Severe hypokalemia Hypertensive urgency, newly diagnosed NSTEMI, likely type 2 secondary to above Plan/Recommendation (Dr. Zaidi) * Transthoracic echocardiogram revealed LVEF 65% with normal valves and normal RV function. * Twelve lead electrocardiogram x2 revealed a normal sinus rhythm with borderline T-wave abnormalities to anterior leads. * Treadmill Cardiolite stress test: Preliminary, nonischemic as reviewed by Dr. Zaidi * Heart Score: 4 points. Moderate Score for major cardiac events. * Serial troponin levels peaked at 65 ng/L. Plan: Continue ACEI and chlorthalidone for blood pressure control for a target SBP <140 mmHg as well as electrolyte replenishment as necessary. Symptoms likely secondary to [id number] hypokalemia. Consider addition of spironolactone as adjunct therapy for hypokalemia. Consider Nephrology consultation if deemed necessary. There is no further cardiac workup indicated at this time. Kindly call if you need of further recommendations. Thank you for allowing us to participate in this patient's care. This medical document was created using an electronic medical record system with voice recognition software and computerized dictation system. Although this document has been carefully reviewed, there might still be some phonetic and typographical errors. Occasional wrong-word or ``sound-alike substitutions may have occurred due to the inherent limitations of voice recognition software. These areas are purely typographical due to imperfections of the software programs and do not reflect any compromise in the patient's medical care. Please read the chart carefully and recognize, using context, where these substitutions have occurred. Plan discussed with: Patient, Other Date of Service: Oct 02, 2025 Billing Provider: ANGELA FELIZ Cardiology Common Codes: [id number] HOSP CARE(High ANGELA FELIZ Oct 02, 2025 14:23
[2025-10-02] MEDS: POTASSIUM CHLORIDE 40 MEQ, LIDOCAINE 1% (LOCAL ANESTH.) 4 ML in SODIUM CHL 0.9% 250 ML IV ONE (15:17)
[2025-10-02] MEDS: POTASSIUM CHL 20 Meq TABLET PO ONE (15:18)
[2025-10-02] MEDS ORDERED: POTA-36 PO (16:11)
[2025-10-02 17:00] VITALS: BP 126/81; PULSE 70; RESP 18; TEMP 98.2; O2SAT 98
--- NOTE | 2025-10-03 02:32 | DVHPN2 ---
Consult Progress Note Date Seen: Oct 02, 2025 Subjective Other Systems: Patient was seen and evaluated in follow up. Transthoracic echocardiogram revealed LVEF 65% with normal valves and normal RV function. Twelve lead electrocardiogram x2 revealed a normal sinus rhythm with borderline T-wave abnormalities to anterior leads. Treadmill Cardiolite stress test: Preliminary, nonischemic. Patient is cardiac stable for discharge. Telemetry reviewed. Objective vital signs Vital Sign Date Time Temp Pulse Resp B/P (MAP) Pulse Ox O2 Delivery O2 Flow Rate FiO2 10/02/25 17:00 98.2 70 18 126/81 (96) 98 98.2 10/02/25 08:00 Room Air* 0 21 Total Intake and Output 10/02/25 10/02/25 10/03/25 15:00 23:00 07:00 Intake Total 480 ml Balance 480 ml Examination: GENERAL:Normal, HEENT:Normal, NECK:Normal, LUNGS:Normal, LUNGS:Abnormal, CVS:Normal, ABDOMEN:Normal, MSK:Normal laboratory and microbiology Laboratory Tests 10/02/25 11:50 10/01/25 05:23 Test 10/02/25 11:50 Range/Units Serum Glucose 139 H 74-106 mg/dL Problem List/Assessment/Plan Problem List/Assessment/Plan Problem List/Assessment/Plan Chest pain rule out coronary artery disease. Severe hypokalemia. Hypertensive urgency, newly diagnosed. NSTEMI, likely type 2 secondary to above. Plan/Recommendation Continued all current supportive medical care. Patient has been seen by Kristi Sands NP on my behalf. We have discussed the plan with the patient. Transthoracic echocardiogram revealed LVEF 65% with normal valves and normal RV function. Twelve lead electrocardiogram x2 revealed a normal sinus rhythm with borderline T-wave abnormalities to anterior leads. Treadmill Cardiolite stress test: Preliminary, nonischemic. Heart Score: 4 points. Moderate Score for major cardiac events. Serial troponin levels peaked at 65 ng/L. Continue ACEI and chlorthalidone for blood pressure control for a target SBP <140 mmHg as well as electrolyte replenishment as necessary. Symptoms likely secondary to [id number] hypokalemia. Consider addition of spironolactone as adjunct therapy for hypokalemia. Consider Nephrology consultation if deemed necessary. There is no further cardiac workup indicated at this time. Patient has been seen by Kristi Sands, MOTHER TESTER on my behalf. We have discussed the plan with the patient. Plan discussed with: Patient Date of Service: Oct 02, 2025 Billing Provider: AMANDA PERES MD Cardiology Common Codes: [id number] [facility](High AMANDA PERES MD Oct 03, 2025 02:32
--- NOTE | 2025-10-03 06:42 | DVHSR ---
APPROVED REPORT Exam: Nuclear Stress Test Indication: Chest pain BMI: 0 Stress Test Details Stress Test: Exercise stress testing was performed using a Marlon protocol. HR Resting HR: 64 bpm Max Heart Rate (APMHR): 170.230830 bpm Max HR Achieved: 166 bpm Target HR (85% APMHR): 144.391665 bpm % of APMHR: 97.65 Recovery HR: 97 bpm BP Resting BP: 140/91 mmHg Recovery BP: 159/99 mmHg ECG Resting ECG: Sinus Rhythm Clinical Reason for Termination: Completed protocol Exercise duration: 9 min sec Nurse Comments Recieved ambulatory, A/Ox4 on RA, connected to manager cardiac cath, VS stable. PIV S/L flushes well, reviewed POC, pt verbalized understanding. [place] LOAN CLOSER here to monitor exam. Treadmill test performed per protocol. Pt stable, tolerated well, VS returned to baseline. Pt to follow up with hardboard press operator for results. Stress ECG Conclusion lvef 54% normal perfusion scan NM EXAM: Myocardial Perfusion REST/STRESS Imaging Protocol: Rest Tc-99m/Stress Tc-99m 1 day Resting Data Rest SPECT myocardial perfusion imaging was performed in supine position 45 minutes following the intravenous injection of 8.1 mCi of Tc-99m Sestamibi. Time of rest injection: 07:42 Date: 10/02/2025 Time of rest imagin:27 Date: 10/02/2025 Administration Route: IV Administration Site: Right Arm Exercise Stress At peak stress, the patient was injected intravenously with 31.1mCi of Tc-99m Sestamibi. Time of stress injection: 09:50 Date: 10/02/2025 Time of stress imagin:35 Date: 10/02/2025 Administration Route: IV Administration Site: Right Arm Gated Stress SPECT was performed 45 minutes after stress injection. The images were gated to evaluate regional wall motion and calculate left ventricular ejection fraction. Stress only was performed in the Supine position. Nuclear Conclusion Nuclear Findings: negative for ischemia lvef 54% normal perfusion scan
--- NOTE | 2025-10-04 08:43 | ECG ---
[facility] Test Date: 2025-09-30 Test Time: 15:37:32 Pat Name: KAYDEN TOVAR 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
== END 2025-10-02 18:55 | disposition home or self-care (01) | DRG 199 ==
LOC: ER 15:24 → OVERFLOW 21:11 → TELE-WESTW 22:18
PROVIDERS: ADMIT Hospitalist; ATTEND Hospitalist
DX: I16.1 Hypertensive emergency (principal); I21.A1 Myocardial infarction type 2; N39.0 Urinary tract infection, site not specified; I10 Essential (primary) hypertension; I25.10 Atherosclerotic heart disease of native coronary artery without angina pectoris; E87.6 Hypokalemia; R73.9 Hyperglycemia, unspecified; Z83.3 Family history of diabetes mellitus; Z82.61 Family history of arthritis
CPT/HCPCS: 36415; 71045; 78452; 80048; 80053; 80061; 81001; 83036; 83735; 84132; 84443; 84484; 85025; 87086; 93005; 93017; 93306; 96372; 99291; 99292; G0378; J2003; J3480